=== PATIENT | female | born 1985 | race Native Hawaiian/Other Pacific Islander ===

== ENCOUNTER 2017-08-26 17:44 | Outpatient (CLI) | payer BC ==
[~2017-08-26 17:44] MED LIST: BUTAL/APAP1 TAB OR; DEXL60CA4 PO; FERROUS SULF325 M1 OR; LABETALOL100 MG OR; METFORMIN ER1000 MG PO
[2017-08-26 18:01] LABS: PLATELET COUNT 386 K/uL (152-353)
== END 2017-08-26 18:45 | disposition home or self-care (01) ==
LOC: LAB 17:44
PROVIDERS: Nurse Practitioner
DX: D50.0 Iron deficiency anemia secondary to blood loss (chronic) (principal)
CPT/HCPCS: 36415; 85027

== ENCOUNTER 2017-12-04 12:18 | Outpatient (CLI) | payer BC | END 2017-12-04 22:53 | disposition home or self-care (01) | LOC: LABW 12:18 | DX: O03.4 Incomplete spontaneous abortion without complication (principal) | CPT/HCPCS: 36415; 84702 ==

== ENCOUNTER 2017-12-14 17:06 | Outpatient (CLI) | payer BC | END 2017-12-14 21:57 | disposition home or self-care (01) | LOC: LAB 17:06 | DX: O00.80 Other ectopic pregnancy without intrauterine pregnancy (principal) | CPT/HCPCS: 84702 ==

== ENCOUNTER 2020-02-08 08:00 | Outpatient (CLI) | payer BC | END 2020-02-08 21:02 | disposition home or self-care (01) | LOC: US 08:00 | DX: R10.11 Right upper quadrant pain (principal) ==

== ENCOUNTER 2020-06-11 12:11 | Outpatient (CLI) | payer BC | END 2020-06-11 19:17 | disposition home or self-care (01) | LOC: CT 12:11 | PROVIDERS: ATTEND Internal Medicine | DX: R10.31 Right lower quadrant pain (principal) | CPT/HCPCS: 36415; 82565; 84520; Q9963 ==